=== PATIENT | male | born 1970 | race Two or more races ===

== ENCOUNTER 2016-05-11 17:32 | Emergency (ER) | payer OTHER ==
--- NOTE | 2016-05-11 18:47 | RAD ---
FINGER RIGHT HISTORY: Crush injury to right third digit. COMPARISONS: None FINDINGS: AP, lateral, oblique views of the right third digit do not show fracture, dislocation or radiopaque foreign body. Injury to the nail is present, lifted from the skin surface. Remainder the visualized hand is unremarkable. IMPRESSION: Soft tissue injury without fracture or dislocation.
[2016-05-11] MEDS ORDERED: IBUPROFEN 600 MG TABLET ONE (19:46)
[2016-05-11] MEDS ORDERED: ACETAMINOPHEN 325 MG TABLET ONE (19:46)
== END 2016-05-11 20:15 | disposition home or self-care (01) ==
LOC: ED 17:32
DX: S61.302A Unspecified open wound of right middle finger with damage to nail, initial encounter (principal); S67.192A Crushing injury of right middle finger, initial encounter; W31.9XXA Contact with unspecified machinery, initial encounter; Y92.69 Other specified industrial and construction area as the place of occurrence of the external cause; Y99.0 Civilian activity done for income or pay
CPT/HCPCS: 73140; 99283 ×2; 11730 ×2; 64450 ×2; A9270 ×2